=== PATIENT | female | born 1980 ===

== ENCOUNTER 2016-11-26 13:50 | Emergency (ER) | payer BC ==
[2016-11-26 16:16] VITALS: BP 142/88
--- NOTE | 2016-11-26 16:19 | UC ---
Ear Complaint HPI - HPI Summary HPI Summary: severe left ear pain x 6 days. Has been seen by Colette Mcgarry NP, and given Augmentin, steroids and steroid nose spray without any relief. States the pain started to get better on the meds and then returned severe again. No hx TMJ. - History of Current Complaint Chief Complaint: UCGeneralIllness Stated Complaint: EAR PAIN Time Seen by Provider: 11/26/16 16:18 Hx Obtained From: Patient Hx Last Menstrual Period: 11/17/16 ?: No Onset/Duration: Gradual Onset, Lasting Days, Still Present Severity Initially: Moderate Severity Currently: Severe Pain Intensity: 9 - tearful Pain Scale Used: 0-10 Numeric Aggravating Factors: Nothing Alleviating Factors: Nothing Associated Signs/Symptoms: Negative: Hearing Loss, Trauma to Ear, Swelling @ - Allergies/Home Medications Allergies/Adverse Reactions: Allergies Allergy/AdvReac Type Severity Reaction Status Date / Time No Known Allergies Allergy Verified 11/26/16 16:16 Home Medications: Home Medications Amoxicillin/Clavulanate TAB* [Augmentin TAB 875*] 875 mg PO BID 11/26/16 [ History Confirmed 11/26/16] Cholecalciferol [Vitamin D3] 50,000 unit PO WEEKLY 11/26/16 [History Confirmed 11/26/16] Mometasone NASAL (NF) [Nasonex (NF)] 2 spray .SEE ORDER DAILY 11/26/16 [History Confirmed 11/26/16] Tirosint Thyroid 100 mcg DAILY 11/26/16 [History] PMH/Surg Hx/FS Hx/Imm Hx Endocrine History Of: Reports: Thyroid Disease - Surgical History Surgical History: Yes Surgery Procedure, Year, and Place: [place] related x5 - Family History Known Family History: Positive: Hypertension - Social History Lives: With Family Alcohol Use: Occasionally Substance Use Type: None Smoking Status (MU): Never Smoked Tobacco - Immunization History Most Recent Influenza Vaccination: none Review of Systems Constitutional: Negative Skin: Negative Eyes: Negative ENT: Ear Ache Respiratory: Negative Cardiovascular: Negative Gastrointestinal: Negative Genitourinary: Negative Motor: Negative Neurovascular: Negative Musculoskeletal: Negative Neurological: Negative Psychological: Negative All Other Systems Reviewed And Are Negative: Yes Physical Exam Triage Information Reviewed: Yes Appearance: Well-Nourished, Ill-Appearing, Pain Distress Vital Signs: Initial Vital Signs Temp 97.8 F 11/26/16 16:10 Pulse 92 11/26/16 16:10 Resp 17 11/26/16 16:10 BP 142/88 11/26/16 16:10 Pulse Ox 100 11/26/16 16:10 Vital Signs Reviewed: Yes Eyes: Positive: Conjunctiva Clear ENT: Positive: Pharynx normal, TM red - slightly red umbo on left, Other: - indicates severe pain ant to left ear, at TMJ and radiating inferior to the left auricle. Negative: Tonsillar swelling, Tonsillar exudate Dental Exam: Normal Dental: Negative: Percussion Tenderness @, Gross Decay/Caries @, Dental Fracture @ Neck: Positive: Supple, Nontender, No Lymphadenopathy Respiratory: Positive: No respiratory distress Cardiovascular: Positive: RRR, Pulses Normal, Brisk Capillary Refill Musculoskeletal: Positive: Strength Intact, ROM Intact Neurological: Positive: Alert, Muscle Tone Normal Psychological Exam: Other - tearful due to severe pain Skin Exam: Normal Re-Evaluation - Re-Evaluation First Eval Re-Evaluation Time: 17:00 Change: Improved Ear Complaint Course/Dx - Course Course Of Treatment: istop shows no search items. given [place] 5/325mg po at 4: 27pm. discussed with Colette Mcgarry who agrees with referral - Differential Dx/Diagnosis Differential Diagnosis/HQI/PQRI: Mastoiditis, Otitis Externa, Otitis Media, TMJ Syndrome, Trigeminal Nueralgia Provider Diagnoses: left otalgia Discharge - Discharge Plan Condition: Stable Disposition: HOME Prescriptions: HYDROcodone/ACETAMIN 5-325 MG* [[place] 5-325 TAB*] 1 tab PO Q4H PRN #6 tab MDD 6 PRN Reason: Pain Patient Education Materials: Earache (ED) Referrals: Rafy Dumont MD [Medical Doctor] - Additional Instructions: Dr. Rodriguez made an appointment for you with Dr. Dumont, the angle shear set up operator, who will see you in their office tomorrow, Wednesday11/27/16, at 0845am. You were given one tablet of [place] for severe pain. You may take your next dose any time after 8pm, and then every four hours as needed after that.
[2016-11-26] MEDS ORDERED: HYDROcodone/ACETAMIN 5-325 MG* 1 TAB PO ONE (16:20)
== END 2016-11-26 17:20 | disposition home or self-care (01) ==
LOC: UCCORT 13:50
DX: H92.02 Otalgia, left ear (principal); E07.9 Disorder of thyroid, unspecified
CPT/HCPCS: 99202; G0463

== ENCOUNTER 2017-01-09 12:17 | Emergency (ER) | payer BC ==
[2017-01-09 14:28] VITALS: BP 128/85
--- NOTE | 2017-01-09 14:40 | UC ---
Hand/Wrist HPI - HPI Summary HPI Summary: pt presents with c/o left thumb swelling, bruising, and tenderness, S/p falling off step ladder and landing on left thumb. Pt denies LOC or head injury - History Of Current Complaint Chief Complaint: UCUpperExtremity Stated Complaint: LEFT HAND INJURY/FALL Time Seen by Provider: 01/09/17 14:32 Hx Obtained From: Patient Hx Last Menstrual Period: 12/13/16 ?: No Onset/Duration: Sudden Onset Severity Initially: Moderate Severity Currently: Mild Character Of Pain: Dull, Aching, Stiffness Aggravating Factor(s): Movement Alleviating: Rest, Ice, Elevation Associated Signs And Symptoms: Positive: Swelling, Bruising Related History: Dominant Hand Right - Risk Factors Compartment Syndrome Risk Factors: Pain - Allergies/Home Medications Allergies/Adverse Reactions: Allergies Allergy/AdvReac Type Severity Reaction Status Date / Time No Known Allergies Allergy Verified 01/09/17 14:16 Home Medications: Home Medications Ibuprofen TAB* [Motrin TAB* 600 MG] 600 mg PO Q6H PRN 01/09/17 [History Confirmed 01/09/17] PMH/Surg Hx/FS Hx/Imm Hx Previously Healthy: Yes Endocrine History Of: Reports: Thyroid Disease - Surgical History Surgical History: Yes Surgery Procedure, Year, and Place: [employer] related x5 - Family History Known Family History: Positive: Hypertension - Social History Alcohol Use: Occasionally Substance Use Type: None Smoking Status (MU): Never Smoked Tobacco - Immunization History Most Recent Influenza Vaccination: none Review of Systems Constitutional: Negative Skin: Bruising - left thumb and area between thumb and first finger Eyes: Negative ENT: Negative Respiratory: Negative Cardiovascular: Negative Gastrointestinal: Negative Genitourinary: Negative Motor: Decreased ROM - left thumb secondary to pain, Weakness - left thumb Neurovascular: Negative Musculoskeletal: Arthralgia, Decreased ROM, Edema, Myalgia - left thumb Neurological: Negative Psychological: Negative All Other Systems Reviewed And Are Negative: Yes Physical Exam Triage Information Reviewed: Yes Appearance: Well-Appearing Vital Signs: Initial Vital Signs Temp 99.4 F 01/09/17 14:17 Pulse 72 01/09/17 14:17 Resp 16 01/09/17 14:17 BP 128/85 01/09/17 14:17 Pulse Ox 97 01/09/17 14:17 Vital Signs Reviewed: Yes Respiratory Exam: Other Respiratory: Positive: No respiratory distress Cardiovascular Exam: Normal Musculoskeletal: Positive: Strength Limited @ - left thumb, ROM Limited @, Edema @ - left thumb, ecchymosis, ROM motion intact with exam, Other: - positive radial pulse left wrist Neurological Exam: Normal Psychological Exam: Normal Skin Exam: Other - bruising left wrist/hand Hand/Wrist Course/Dx - Differential Dx/Diagnosis Differential Diagnosis/HQI/PQRI: Contusion, Dislocation, Fracture, Sprain, Strain Provider Diagnoses: left thumb sprain. contusion left thumb Discharge - Discharge Plan Condition: Stable Disposition: HOME Patient Education Materials: Finger Sprain (ED) Referrals: Tu Washington MD [Medical Doctor] - Colette Mcgarry NP [Primary Care Provider] - If Needed Additional Instructions: Please follow up with your PCP or return to clinic as needed. We have provided a referral to an orthopedic provider for you to follow up with if your symptoms persist.
--- NOTE | 2017-01-09 14:48 | RAD ---
INDICATION: Pain between the left thumb and index finger after a fall COMPARISON: None. TECHNIQUE: 4 views of the left hand were obtained. FINDINGS: The adequately corticated bones are in normal alignment. No significant focal osseous abnormality or fracture is seen. Joint spaces appear maintained. IMPRESSION: Normal left hand radiograph. If the patient's symptoms persist, follow-up imaging is recommended.
== END 2017-01-09 15:02 | disposition home or self-care (01) ==
LOC: UCCORT 12:17
DX: S63.602A Unspecified sprain of left thumb, initial encounter (principal); S60.012A Contusion of left thumb without damage to nail, initial encounter; W11.XXXA Fall on and from ladder, initial encounter; Y93.9 Activity, unspecified; Y92.9 Unspecified place or not applicable
CPT/HCPCS: 99212; G0463